=== PATIENT | female | born 1985 | race Native Hawaiian/Other Pacific Islander ===

== ENCOUNTER 2018-03-13 08:50 | Outpatient (CLI) | payer BC ==
[~2018-03-13 08:50] MED LIST: ADIPEX PO; HYDR25TA60 PO; LEVO0.0529 PO
== END 2018-03-13 20:37 | disposition home or self-care (01) ==
LOC: RAD 08:50
DX: M25.562 Pain in left knee (principal); M25.561 Pain in right knee

== ENCOUNTER 2020-07-04 08:25 | Outpatient (CLI) | payer BC | END 2020-07-04 19:15 | disposition home or self-care (01) | LOC: RAD 08:25 | PROVIDERS: ATTEND Nurse Practitioner Family | DX: M17.0 Bilateral primary osteoarthritis of knee (principal); R70.0 Elevated erythrocyte sedimentation rate; R76.0 Raised antibody titer ==

== ENCOUNTER 2020-07-24 15:13 | Outpatient (CLI) | payer BC | END 2020-07-24 21:56 | disposition home or self-care (01) | LOC: RESP 15:13 | PROVIDERS: ATTEND Nurse Practitioner Family | DX: M17.0 Bilateral primary osteoarthritis of knee (principal); R70.0 Elevated erythrocyte sedimentation rate; R76.0 Raised antibody titer; Z68.36 Body mass index [BMI] 36.0-36.9, adult ==

== ENCOUNTER 2020-12-17 08:20 | Outpatient (CLI) | payer BC ==
[2020-12-17 08:57] LABS: POTASSIUM 3.7 mmol/L (3.6-5.2)
[2020-12-17 09:09] LABS: PLATELET COUNT 335 K/uL (152-353)
== END 2020-12-17 19:43 | disposition home or self-care (01) ==
LOC: LABW 08:20
PROVIDERS: ATTEND Plastic Surgery
DX: Z01.812 Encounter for preprocedural laboratory examination (principal); Z01.818 Encounter for other preprocedural examination; Z01.811 Encounter for preprocedural respiratory examination
CPT/HCPCS: 36415; 80048; 85027